=== PATIENT | male | born 1990 | race Two or more races ===

== ENCOUNTER 2021-09-04 02:00 | Emergency (ER) | payer MEDICAID ==
[~2021-09-04] VITALS: Ht 185.4 cm; Wt 113.4 kg
[2021-09-04 09:24] VITALS: BP 81/92
== END 2021-09-04 09:28 | disposition home or self-care (01) ==
LOC: EDBD 02:00 → ER 02:05
DX: R41.82 Altered mental status, unspecified (principal)

== ENCOUNTER 2021-10-04 17:41 | Emergency (ER) | payer MEDICAID ==
[~2021-10-04] VITALS: Ht 177.8 cm; Wt 127.0 kg
[2021-10-04 21:01] VITALS: BP 131/64
== END 2021-10-04 21:03 | disposition home or self-care (01) ==
LOC: EDBD 17:41 → ER 17:41
DX: S91.132A Puncture wound without foreign body of left great toe without damage to nail, initial encounter (principal); T63.001A Toxic effect of unspecified snake venom, accidental (unintentional), initial encounter; F15.10 Other stimulant abuse, uncomplicated; Y92.89 Other specified places as the place of occurrence of the external cause

== ENCOUNTER 2021-11-03 09:30 | Emergency (ER) | payer MEDICAID ==
[~2021-11-03] VITALS: Ht 172.7 cm; Wt 113.4 kg
[2021-11-03] MEDS ORDERED: OLANZapine 5 MG TAB PO ONE (09:45)
[2021-11-03 10:10] LABS: Amphetamine Screen, Urine NEGATIVE (NEGATIVE); Barbiturate Scree,Urine NEGATIVE (NEGATIVE); Benzodiazephine Screen, Urine NEGATIVE (NEGATIVE); Cannabinoid Screen, Urine NEGATIVE (NEGATIVE); Cocaine Screen, Urine NEGATIVE (NEGATIVE); Opiate Scree,Urine NEGATIVE (NEGATIVE); Phencyclidine Screen, Urine NEGATIVE (NEGATIVE)
[2021-11-03 10:49] LABS: Salicylate < 1.7 mg/dL (2.8-20.0)
[2021-11-03 10:50] LABS: Acetaminophen < 2.0 ug/mL (10-30)
[2021-11-04] MEDS ORDERED: SODIUM CHLORIDE 0.9% 1,000 ML IV ONE (07:45)
[2021-11-04 09:40] LABS: Basophils # (auto) 0.3 10 ^3/uL (0-0.2); Basophils % (auto) 3.2 % (0.0-2.0); Eosinophils # (auto) 0.2 10 ^3/uL (0-0.8); Eosinophils % (auto) 2.3 % (0.0-7.0); Hematocrit 43.3 % (41.0-53.0); Hemoglobin 14.6 g/dL (13.5-17.5); Lymphocytes # (auto) 2.2 10 ^3/uL (0.4-5.4); Lymphocytes % (auto) 23.1 % (10.0-50.0); Mean Corpuscular Hemoglobin 29.6 pg (28.0-32.0); Mean Corpuscular Hgb Conc. 33.7 g/dL (32.0-36.0); Mean Corpuscular Volume 87.8 fL (80.0-100.0); Monocytes # (auto) 0.3 10 ^3/uL (0-1.3); Monocytes % (auto) 3.2 % (0.0-12.0); Neutrophils # (auto) 6.4 10 ^3/uL (1.6-8.6); Neutrophils % (auto) 68.2 % (37.0-80.0); Red Blood Cells 4.93 10^6/uL (4.5-5.90); White Blood Cell 9.4 10^3/uL (4.4-10.8)
[2021-11-04 10:01] LABS: Albumin 3.1 g/dL (3.4-5.0); Calcium 8.3 mg/dL (8.5-10.1); Magnesium 2.3 mg/dL (1.6-2.6); Potassium 3.7 mmol/L (3.5-5.1)
[2021-11-04 10:05] LABS: BUN/Creatinine Ratio 11.8; Bilirubin, Total 0.4 mg/dL (0.2-1.0); Total Protein 6.6 g/dL (6.4-8.2)
[2021-11-04] MEDS ORDERED: RIS1T PO (16:04)
[2021-11-04 16:52] VITALS: BP 124/72
== END 2021-11-04 17:13 | disposition home or self-care (01) ==
LOC: ER 09:30 → EDBD 09:30 → ER 11-04 17:13
DX: F15.10 Other stimulant abuse, uncomplicated (principal); F20.9 Schizophrenia, unspecified; J45.909 Unspecified asthma, uncomplicated; Z20.822 Contact with and (suspected) exposure to COVID-19
CPT/HCPCS: 36415; 71046; 80053; 80307; 80320; 80329; 83735; 85025; 87426; 93005; 96360; 96361; 99285; J7030